=== PATIENT | female | born 1970 | race Hispanic/Latino ===

== ENCOUNTER 2022-12-10 20:02 | Emergency (ER) | payer OTHER ==
[2022-12-11] MEDS ORDERED: Ibuprofen 200 MG TAB ONE (01:30)
== END 2022-12-11 01:58 | disposition home or self-care (01) ==
LOC: CSHERS 20:02
DX: S39.011A Strain of muscle, fascia and tendon of abdomen, initial encounter (principal); I10 Essential (primary) hypertension; E03.9 Hypothyroidism, unspecified; W01.0XXA Fall on same level from slipping, tripping and stumbling without subsequent striking against object, initial encounter; Z79.899 Other long term (current) drug therapy
CPT/HCPCS: 72170